=== PATIENT | female | born 1995 | race Caucasian/White ===

== ENCOUNTER 2019-10-17 06:08 | Emergency (ER) | payer OTHER ==
[~2019-10-17] VITALS: Ht 167.6 cm; Wt 90.7 kg
[2019-10-17 06:18] VITALS: Ht 167.6 cm; Wt 90.7 kg
[2019-10-17 08:23] LABS: UA SPECIFIC GRAVITY >=1.030 (1.005-1.035); microscopic required? YES; urine erythrocyte 3+ (NEGATIVE)
[2019-10-17 08:59] LABS: CALCIUM 9.3 mg/dL (8.5-10.1); CARBON DIOXIDE 23.2 mmol/L (21-32); CHLORIDE SERUM 103 mmol/L (98-107); CREATININE SERUM 0.9 mg/dL (0.6-1.0); GFR1 > 60 mL/min; GLUCOSE SERUM 157 mg/dL (74-106); POTASSIUM SERUM 3.9 mmol/L (3.5-5.1); SODIUM SERUM 140 mmol/L (136-145)
[2019-10-17 09:03] LABS: ALBUMIN 4.3 g/dL (3.4-5.0); ALKALINE PHOSPHATASE 68 U/L (46-116); ALT/SGPT 27 U/L (14-59); AST/SGOT 18 U/L (15-37); BASOPHIL % 0 % (0-2); BILIRUBIN TOTAL 0.9 mg/dL (0.20-1.00); HDL CHOLESTEROL 49 mg/dL (40-60); LIPASE 146 IU/L (73-393); PLATELET COUNT 299 x10^3mcL (130-400); RED CELL DISTRIBUTION WIDTH 13.2 % (11.5-14.5); TOTAL PROTEIN, SERUM 8.1 g/dL (6.4-8.2); TRIGLYCERIDES 50 mg/dL (<150)
[2019-10-17 09:05] LABS: CHOLESTEROL 209 mg/dL (<200); CHOLESTEROL/HDL RATIO 4.3
[2019-10-17 09:14] LABS: AMPHETAMINE QUAL UR NONE DETECTED (See below)
[2019-10-17 11:13] VITALS: BP 134/78
== END 2019-10-17 11:13 | disposition home or self-care (01) ==
LOC: ED 06:08
PROVIDERS: Specialist
DX: R10.9 Unspecified abdominal pain (principal); R07.89 Other chest pain; D72.829 Elevated white blood cell count, unspecified; F50.2 Bulimia nervosa; Z88.2 Allergy status to sulfonamides
CPT/HCPCS: 36415; 83880; 87804; J1885; J2765; Q0092; Q0162

== ENCOUNTER 2019-10-18 16:57 | Emergency (ER) | payer OTHER | END 2019-10-18 17:29 | disposition left against medical advice (07) | LOC: ED 16:57 | DX: Z53.21 Procedure and treatment not carried out due to patient leaving prior to being seen by health care provider (principal) ==

== ENCOUNTER 2020-05-01 18:24 | Emergency (ER) | payer OTHER ==
[~2020-05-01] VITALS: Ht 167.6 cm; Wt 95.3 kg
[2020-05-01 18:49] VITALS: Ht 167.6 cm; Wt 95.3 kg
[2020-05-01 21:20] VITALS: BP 98/54
== END 2020-05-01 21:20 | disposition home or self-care (01) ==
LOC: ED 18:24
DX: S09.8XXA Other specified injuries of head, initial encounter (principal); H53.8 Other visual disturbances; Z88.2 Allergy status to sulfonamides; V49.49XA Driver injured in collision with other motor vehicles in traffic accident, initial encounter; Y93.I9 Activity, other involving external motion; Y92.488 Other paved roadways as the place of occurrence of the external cause; Y99.8 Other external cause status
CPT/HCPCS: 82962

== ENCOUNTER 2020-05-03 23:23 | Emergency (ER) | payer OTHER ==
[~2020-05-03] VITALS: Ht 167.6 cm; Wt 95.3 kg
[2020-05-03 23:24] VITALS: BP 132/78; Ht 167.6 cm; Wt 95.3 kg
== END 2020-05-04 01:33 | disposition left against medical advice (07) ==
LOC: ED 23:23
DX: Z53.21 Procedure and treatment not carried out due to patient leaving prior to being seen by health care provider (principal)

== ENCOUNTER 2020-05-08 21:41 | Emergency (ER) | payer OTHER ==
[~2020-05-08] VITALS: Ht 167.6 cm; Wt 90.7 kg
[2020-05-08 21:59] VITALS: Ht 167.6 cm; Wt 90.7 kg
[2020-05-08 22:31] LABS: BASOPHIL % 1.6 % (0-2); PLATELET COUNT 228 x10^3mcL (130-400); RED CELL DISTRIBUTION WIDTH 13.5 % (11.5-14.5)
[2020-05-08 22:55] LABS: ALBUMIN 3.8 g/dL (3.4-5.0); ALKALINE PHOSPHATASE 52 U/L (46-116); ALT/SGPT 27 U/L (14-59); AST/SGOT 20 U/L (15-37); BILIRUBIN TOTAL 0.31 mg/dL (0.20-1.00); CALCIUM 8.7 mg/dL (8.5-10.1); CARBON DIOXIDE 23.4 mmol/L (21-32); CHLORIDE SERUM 103 mmol/L (98-107); GFR1 > 60 mL/min; GLUCOSE SERUM 86 mg/dL (74-106); POTASSIUM SERUM 3.2 mmol/L (3.5-5.1); SODIUM SERUM 137 mmol/L (136-145); TOTAL PROTEIN, SERUM 7.2 g/dL (6.4-8.2)
[2020-05-09 05:04] LABS: AMPHETAMINE QUAL UR NONE DETECTED (See below)
[2020-05-09 07:17] VITALS: BP 109/72
== END 2020-05-09 07:17 ==
LOC: ED 21:41
PROVIDERS: Emergency Medicine
DX: R45.851 Suicidal ideations (principal); Z88.2 Allergy status to sulfonamides
CPT/HCPCS: G0480; U0003-CS